=== PATIENT | female | born 1945 | race Caucasian/White ===

== ENCOUNTER 2019-05-09 16:41 | Inpatient (IN) ==
[2019-05-09] MEDS ORDERED: methylPREDNISolone 125 MG/2 ML VIAL IVP ONE (16:48)
[2019-05-09] MEDS ORDERED: Ipratropium/Albuterol Neb 3 ML IH ONE (16:48)
[2019-05-09] MEDS ORDERED: Ipratropium/Albuterol Neb 3 ML ONE (16:52)
[2019-05-09] MEDS ORDERED: 0.9 % Sodium Chloride 1,000 ML IVC STA (16:53)
--- NOTE | 2019-05-09 16:57 | Emergency Department Note ---
Disposition Clinical Impression: Acute exacerbation of chronic obstructive airways disease UTI (urinary tract infection) Qualifiers: Urinary tract infection type: site unspecified Hematuria presence: without hematuria Qualified Code(s): N39.0 - Urinary tract infection, site not specified Disposition: Admitted As Inpatient Condition: Serious Referrals: Sammy Muniz Jr, MD [Primary Care Provider] - Forms: ED Satisfaction Letter Time of Disposition: 19:21 General Adult HPI - General Chief complaint: ED Shortness of Breath/Dyspnea Stated complaint: DALI Time Seen by Provider: 05/09/19 16:48 Source: patient Mode of arrival: EMS Limitations: no limitations Nursing Notes Reviewed: Yes Vital Signs Reviewed: Yes - History of Present Illness HPI Narrative: Patient is a 74-year-old female with a past medical history of COPD who presents via EMS with increasing shortness of breath for the past several days. She denies any fevers or chest pain. Denies any cough or production of sputum. She denies any recent illness. EMS reports that the patient is more confused and repeatedly asks the same questions. Patient is alert and oriented to self and place only. She has not fallen or sustained any head trauma. According to EMS, the patient called them for increasing respiratory distress. Per EMS report, the patient has a very poor living situation. The home is "very hot, with insects everywhere, with unclean surroundings, no running water." Patient has been taking her inhalers, however it has not helped. She also has decreased food and fluid intake for the past several days. - Related Data Home Medications Medication Instructions Recorded Confirmed Albuterol Sulfate [Ventolin Hfa] 18 gm IH Q4H PRN 05/09/19 05/09/19 Allergies Allergy/AdvReac Type Severity Reaction Status Date / Time No Known Allergies Allergy Verified 06/09/18 02:32 All systems ED: reviewed and negative except as stated. Review of Systems: As Per HPI Constitutional: Denies: fever, chills, weakness Eyes: Denies: eye discharge, vision change ENT ED: Denies: ear pain, throat pain, dental pain Cardiovascular: Denies: chest pain, palpitations, dyspnea on exertion Respiratory: Reports: dyspnea, wheezes. Denies: cough Gastrointestinal: Denies: abdominal pain, nausea, vomiting Genitourinary: Denies: urgency, dysuria, frequency Musculoskeletal: Denies: back pain, neck pain, joint swelling Integumentary: Denies: rash, abrasion, lesions Neurological: Denies: headache, weakness, numbness Psychiatric: Denies: anxiety, depression Endocrine: Reports: fatigue. Denies: heat or cold intolerance, polydipsia Hematological/Lymphatic: Denies: easy bleeding, easy bruising, lymphadenopathy Past Medical History - Past Medical History Attestation: Yes The following information was validated with the patient. 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 HEAD: Normocephalic, atraumatic. EYES: PERRL, EOMI, anicteric. ENT: MMM. oropharynx without erythema or drainage. NECK: Supple. No LAD. No stiffness or restricted ROM. No tracheal deviation. HEART: Regular rate and regular rhythm, normal S1/S2, no m/r/g. LUNGS: Poor air exchange bilaterally, diffuse wheezing inspiratory/expiratory in all lung aguirre. ABDO: Soft, nontender, nondistended with active bowel sounds. : No suprapubic tenderness or CVA tenderness. BACK: No obvious stepoffs or deformities. EXT: Without cyanosis, clubbing or edema. SKIN: Warm and dry without any rash. NEURO: Grossly nonfocal. Alert and oriented to self and place only, moving all 4 extremities. CN not formally tested but appear grossly intact. Observed to ambulate with normal gait. PSYCH: Normal affect, no depressed or anxious mood. Course Course Narrative: Patient was seen and examined. Appeared to be in respiratory distress. Was given inhalers and steroids. CBC, CMP, EKG, troponins, ABG, chest x-ray was ordered. The CT head was obtained for altered mental status. Also BNP, lactate. Also appeared dehydrated with positive skin turgor. Given 1 L normal saline bolus. Vital Signs Respiratory Rate 20 05/09/19 17:04 Blood Pressure 156/96 05/09/19 17:04 O2 Sat by Pulse Oximetry 98 05/09/19 17:04 Temperature 98.1 F 05/09/19 17:10 Pulse Rate 85 05/09/19 19:19 Respiratory Rate 18 05/09/19 19:19 Blood Pressure 124/77 05/09/19 19:19 O2 Sat by Pulse Oximetry 98 05/09/19 19:19 Oxygen Delivery Oxygen Delivery Room Air Medical Decision Making - MDM Narrative Medical decision making narrative: Patient a 74-year-old female who is presenting with shortness of breath due to COPD exacerbation. She also has unstable home situation. Patient was initially hypoxic requiring 4 L of nasal cannula. She was also hypertensive with a blood pressure of 150 systolic. She was treated with inhalers and steroids. He did have significant improvement. She is typically on 2-3 L of home oxygen. Labs are significant for UTI. A chest x-ray showed emphysema. Head CT was normal. She was started on Rocephin. Given the fragile nature of her home situation and overall dehydration, malnutrition, cachexia along with the COPD with new oxygen requirement she will be admitted to hospitalist service. After treatment mentation was at baseline, it was no longer respiratory distress. She was also started on azithromycin for COPD exacerbation. Given 1 L normal saline. She was communicated to the hospitalist who accepted for admission. - Medical Records Medical records reviewed: Yes I reviewed the patient's medical records. - Lab Data Lab results reviewed: Yes I reviewed the patient's lab results. Result diagrams: 05/09/19 17:45 05/09/19 17:45 Lab Results 05/09/19 05/09/19 05/09/19 Range/Units 17:03 17:45 17:45 WBC 9.1 (4.3-11.1) K/mcL RBC 4.58 (3.82-4.97) M/mcL Hgb 13.9 (11.5-15.4) g/dL Hct 42.6 (35.3-44.9) % MCV 93.0 (83.0-100.0) fL MCH 30.3 (28.0-33.3) pg MCHC 32.6 (31.6-35.5) g/dL RDW 13.8 (11.5-14.5) % Plt Count 263 (140-400) K/mcL MPV 11.4 (9.4-12.4) fL Immature Gran % 0.2 (0-4) % Seg Neutrophils % 84.3 % Lymphocytes % 8.0 % Monocytes % 7.0 % Eosinophils % 0.4 % Basophils % 0.1 % Neutrophils # 7.6 (1.6-8.9) K/mcL Lymphocytes # 0.7 (0.6-4.6) K/mcL Monocytes # 0.6 (0.0-1.3) K/mcL Eosinophils # 0.0 (0.0-0.6) K/mcL Basophils # 0.0 (0.0-0.2) K/mcL ABG pH 7.41 (7.32-7.45) pH Units ABG pCO2 49 H (35-45) mmHg ABG pO2 99 (85-104) mmHg ABG HCO3 30 H (21-27) mEq/L ABG Total CO2 32 H (20-26) mEq/L ABG O2 Saturation 98 (95-98) % ABG Base Excess 5 H (-2 to 3) mEq/L O2 Delivery Device Cannula Inspired O2 4.0 (1-15=lpm [id number]=%) Sodium 142 (136-145) mEq/L Potassium 4.1 (3.5-5.1) mEq/L Chloride 102 (98-107) mEq/L Carbon Dioxide 30 H (23-29) mEq/L BUN 31 H (8-23) mg/dL Creatinine 0.85 (0.60-1.20) mg/dL Est GFR ( Amer) > 60 (> 60) Est GFR (Non-Af Amer) > 60 (> 60) BUN/Creatinine Ratio 36 H (6-26) Glucose 136 H (70-105) mg/dL Calculated Osmolality 303 H (280-300) Lactic Acid (0.5-2.2) mmol/L Calcium 10.0 (8.6-10.3) mg/dL Troponin I < 0.03 (< 0.04) ng/mL B-Natriuretic Peptide (Less than 100) pg/mL Urine Color (Yellow) Urine Clarity (Clear) Urine pH (5.0-8.0) pH Units Ur Specific [place] (1.010-1.025) Urine Protein (Neg-Trace) mg/dL Urine Glucose (UA) (Normal) mg/dL Urine Ketones (Negative) mg/dL Urine Blood (Negative) Urine Nitrite (Negative) Urine Bilirubin (Negative) Urine Urobilinogen (Normal) mg/dL Ur Leukocyte Esterase (Negative) Urine Microscopic RBC (0-3) per hpf Urine Microscopic WBC (0-3) per hpf Ur Squamous Epith Cells (None-Few) per lpf Urine Bacteria (None-Few) per hpf Hyaline Casts (None-Few) per lpf Urine Mucus (Few) Ur Culture Indicated? (NO) 05/09/19 05/09/19 05/09/19 Range/Units 17:45 17:45 18:34 WBC (4.3-11.1) K/mcL RBC (3.82-4.97) M/mcL Hgb (11.5-15.4) g/dL Hct (35.3-44.9) % MCV (83.0-100.0) fL MCH (28.0-33.3) pg MCHC (31.6-35.5) g/dL RDW (11.5-14.5) % Plt Count (140-400) K/mcL MPV (9.4-12.4) fL Immature Gran % (0-4) % Seg Neutrophils % % Lymphocytes % % Monocytes % % Eosinophils % % Basophils % % Neutrophils # (1.6-8.9) K/mcL Lymphocytes # (0.6-4.6) K/mcL Monocytes # (0.0-1.3) K/mcL Eosinophils # (0.0-0.6) K/mcL Basophils # (0.0-0.2) K/mcL ABG pH (7.32-7.45) pH Units ABG pCO2 (35-45) mmHg ABG pO2 (85-104) mmHg ABG HCO3 (21-27) mEq/L ABG Total CO2 (20-26) mEq/L ABG O2 Saturation (95-98) % ABG Base Excess (-2 to 3) mEq/L O2 Delivery Device Inspired O2 (1-15=lpm [id number]=%) Sodium (136-145) mEq/L Potassium (3.5-5.1) mEq/L Chloride (98-107) mEq/L Carbon Dioxide (23-29) mEq/L BUN (8-23) mg/dL Creatinine (0.60-1.20) mg/dL Est GFR ( Amer) (> 60) Est GFR (Non-Af Amer) (> 60) BUN/Creatinine Ratio (6-26) Glucose (70-105) mg/dL Calculated Osmolality (280-300) Lactic Acid 1.6 (0.5-2.2) mmol/L Calcium (8.6-10.3) mg/dL Troponin I (< 0.04) ng/mL B-Natriuretic Peptide 139 H (Less than 100) pg/mL Urine Color Yellow (Yellow) Urine Clarity Clear (Clear) Urine pH 6.5 (5.0-8.0) pH Units Ur Specific [place] 1.022 (1.010-1.025) Urine Protein 100 H (Neg-Trace) mg/dL Urine Glucose (UA) Normal (Normal) mg/dL Urine Ketones Negative (Negative) mg/dL Urine Blood Large H (Negative) Urine Nitrite Negative (Negative) Urine Bilirubin Negative (Negative) Urine Urobilinogen Normal (Normal) mg/dL Ur Leukocyte Esterase Moderate H (Negative) Urine Microscopic RBC TNTC H (0-3) per hpf Urine Microscopic WBC 50-100 H (0-3) per hpf Ur Squamous Epith Cells Many H (None-Few) per lpf Urine Bacteria None Seen (None-Few) per hpf Hyaline Casts Few (None-Few) per lpf Urine Mucus Few (Few) Ur Culture Indicated? YES A (NO) - Radiology Data Radiology results reviewed: Yes I reviewed the patient's radiology results. - EKG Data EKG #1 EKG attestation: Yes I reviewed and interpreted this EKG. EKG results narrative: EKG was obtained at 1654. Interpretation of EKG shows sinus tachycardia, normal intervals, normal axis, no hypertrophy, no ST elevations or depressions, no T wave. Compared to previous from October 18, 2017.
[2019-05-09 17:09] LABS: ABG Base Excess 5 mEq/L (-2 to 3); ABG HCO3 30 mEq/L (21-27); ABG Oxygen Saturation 98 % (95-98); ABG PCO2 49 mmHg (35-45); ABG PH 7.41 pH Units (7.32-7.45); ABG PO2 99 mmHg (85-104); ABG TCO2 32 mEq/L (20-26)
[2019-05-09 18:04] LABS: Basophils % 0.1 %; Eosinophils % 0.4 %; Hematocrit 42.6 % (35.3-44.9); Hemoglobin 13.9 g/dL (11.5-15.4); Immature Granulocytes % 0.2 % (0-4); Lymphocytes # 0.7 K/mcL (0.6-4.6); Mean Corpuscular HGB Conc 32.6 g/dL (31.6-35.5); Mean Corpuscular Hemoglobin 30.3 pg (28.0-33.3); Mean Platelet Volume 11.4 fL (9.4-12.4); Monocytes # 0.6 K/mcL (0.0-1.3); Neutrophils # 7.6 K/mcL (1.6-8.9); Platelet Count 263 K/mcL (140-400); Red Blood Count 4.58 M/mcL (3.82-4.97); Red Cell Distribution Width 13.8 % (11.5-14.5); Segmented Neutrophils % 84.3 %; White Blood Count 9.1 K/mcL (4.3-11.1)
[2019-05-09 18:24] LABS: BUN/Creatinine Ratio 36 (6-26); Blood Urea Nitrogen 31 mg/dL (8-23); Carbon Dioxide 30 mEq/L (23-29); Chloride 102 mEq/L (98-107); Glucose 136 mg/dL (70-105); Osmolality,Calculated 303 (280-300); Potassium 4.1 mEq/L (3.5-5.1); Sodium 142 mEq/L (136-145); Troponin I < 0.03 ng/mL (< 0.04); eGFR For African Americans > 60 (> 60); eGFR For Non-African Americans > 60 (> 60)
[2019-05-09 18:44] LABS: Bilirubin,Urine Negative (Negative); Blood,Urine Large (Negative); Clarity,Urine Clear (Clear); Color,Urine Yellow (Yellow); Glucose,Urine (UA) Normal (Normal); Ketones,Urine Negative (Negative); Leukocyte Esterase,Urine Moderate (Negative); Nitrite,Urine Negative (Negative); PH,Urine 6.5 pH Units (5.0-8.0); Protein,Urine 100 mg/dL (Neg-Trace); Specific Gravity,Urine 1.022 (1.010-1.025); Urobilinogen,Urine Normal (Normal)
[2019-05-09 18:45] LABS: Bacteria,Urine None Seen per hpf (None-Few); Hyaline Casts,Urine Few per lpf (None-Few); RBC,Urine TNTC per hpf (0-3); Squamous Epithelial Cell,Urine Many per lpf (None-Few); WBC,Urine 50-100 per hpf (0-3)
[2019-05-09 19:01] LABS: Mucus,Urine Few (Few)
[2019-05-09] MEDS ORDERED: cefTRIAXone 1,000 MG in 0.9 % Sodium Chloride Mini Bag 100 ML IVPB ONE (19:15)
[2019-05-09] MEDS ORDERED: Azithromycin 500 MG in 0.9 % Sodium Chloride 250 ML IVPB ONE (19:15)
--- NOTE | 2019-05-09 19:16 | Emergency Department Note ---
Disposition Clinical Impression: Acute exacerbation of chronic obstructive airways disease UTI (urinary tract infection) Qualifiers: Urinary tract infection type: site unspecified Hematuria presence: without hematuria Qualified Code(s): N39.0 - Urinary tract infection, site not specified Disposition: Admitted As Inpatient Condition: Serious Referrals: Sammy Muniz Jr, MD [Primary Care Provider] - Forms: ED Satisfaction Letter Time of Disposition: 19:16 General Adult HPI - General Chief complaint: ED Shortness of Breath/Dyspnea Stated complaint: DALI Time Seen by Provider: 05/09/19 16:48 Source: patient Mode of arrival: EMS Limitations: no limitations Nursing Notes Reviewed: Yes Vital Signs Reviewed: Yes - History of Present Illness Pain Scale: 0 - Related Data Home Medications Medication Instructions Recorded Confirmed Albuterol Sulfate [Ventolin Hfa] 18 gm IH Q4H PRN 05/09/19 05/09/19 Allergies Allergy/AdvReac Type Severity Reaction Status Date / Time No Known Allergies Allergy Verified 06/09/18 02:32 Constitutional: Denies: fever, chills, weakness Eyes: Denies: eye discharge, vision change ENT ED: Denies: ear pain, throat pain, dental pain Cardiovascular: Denies: chest pain, palpitations, dyspnea on exertion Respiratory: Reports: dyspnea, wheezes. Denies: cough Gastrointestinal: Denies: abdominal pain, nausea, vomiting Genitourinary: Denies: urgency, dysuria, frequency Musculoskeletal: Denies: back pain, neck pain, joint swelling Integumentary: Denies: rash, abrasion, lesions Neurological: Denies: headache, weakness, numbness Psychiatric: Denies: anxiety, depression Endocrine: Reports: fatigue. Denies: heat or cold intolerance, polydipsia Hematological/Lymphatic: Denies: easy bleeding, easy bruising, lymphadenopathy Past Medical History - Past Medical History Medical history: Reports: COPD, myocardial infarction Psychiatric history: Reports: depression SHRIMPER history: Reports: no SHRIMPER history - Social History Smoking Status: Current every day smoker Smokeless Tobacco Status: No Alcohol use: Reports: none Drug use: Reports: unknown Physical Exam - General Limitations: no limitations General appearance: alert, in no apparent distress Course Vital Signs Respiratory Rate 20 05/09/19 17:04 Blood Pressure 156/96 05/09/19 17:04 O2 Sat by Pulse Oximetry 98 05/09/19 17:04 Temperature 98.1 F 05/09/19 17:10 Pulse Rate 85 05/09/19 19:19 Respiratory Rate 18 05/09/19 19:19 Blood Pressure 124/77 05/09/19 19:19 O2 Sat by Pulse Oximetry 98 05/09/19 19:19 Oxygen Delivery Oxygen Delivery Room Air Medical Decision Making - Lab Data Result diagrams: 05/09/19 17:45 05/09/19 17:45 Lab Results 05/09/19 05/09/19 05/09/19 Range/Units 17:03 17:45 17:45 WBC 9.1 (4.3-11.1) K/mcL RBC 4.58 (3.82-4.97) M/mcL Hgb 13.9 (11.5-15.4) g/dL Hct 42.6 (35.3-44.9) % MCV 93.0 (83.0-100.0) fL MCH 30.3 (28.0-33.3) pg MCHC 32.6 (31.6-35.5) g/dL RDW 13.8 (11.5-14.5) % Plt Count 263 (140-400) K/mcL MPV 11.4 (9.4-12.4) fL Immature Gran % 0.2 (0-4) % Seg Neutrophils % 84.3 % Lymphocytes % 8.0 % Monocytes % 7.0 % Eosinophils % 0.4 % Basophils % 0.1 % Neutrophils # 7.6 (1.6-8.9) K/mcL Lymphocytes # 0.7 (0.6-4.6) K/mcL Monocytes # 0.6 (0.0-1.3) K/mcL Eosinophils # 0.0 (0.0-0.6) K/mcL Basophils # 0.0 (0.0-0.2) K/mcL ABG pH 7.41 (7.32-7.45) pH Units ABG pCO2 49 H (35-45) mmHg ABG pO2 99 (85-104) mmHg ABG HCO3 30 H (21-27) mEq/L ABG Total CO2 32 H (20-26) mEq/L ABG O2 Saturation 98 (95-98) % ABG Base Excess 5 H (-2 to 3) mEq/L O2 Delivery Device Cannula Inspired O2 4.0 (1-15=lpm [id number]=%) Sodium 142 (136-145) mEq/L Potassium 4.1 (3.5-5.1) mEq/L Chloride 102 (98-107) mEq/L Carbon Dioxide 30 H (23-29) mEq/L BUN 31 H (8-23) mg/dL Creatinine 0.85 (0.60-1.20) mg/dL Est GFR ( Amer) > 60 (> 60) Est GFR (Non-Af Amer) > 60 (> 60) BUN/Creatinine Ratio 36 H (6-26) Glucose 136 H (70-105) mg/dL Calculated Osmolality 303 H (280-300) Lactic Acid (0.5-2.2) mmol/L Calcium 10.0 (8.6-10.3) mg/dL Troponin I < 0.03 (< 0.04) ng/mL B-Natriuretic Peptide (Less than 100) pg/mL Urine Color (Yellow) Urine Clarity (Clear) Urine pH (5.0-8.0) pH Units Ur Specific [place] (1.010-1.025) Urine Protein (Neg-Trace) mg/dL Urine Glucose (UA) (Normal) mg/dL Urine Ketones (Negative) mg/dL Urine Blood (Negative) Urine Nitrite (Negative) Urine Bilirubin (Negative) Urine Urobilinogen (Normal) mg/dL Ur Leukocyte Esterase (Negative) Urine Microscopic RBC (0-3) per hpf Urine Microscopic WBC (0-3) per hpf Ur Squamous Epith Cells (None-Few) per lpf Urine Bacteria (None-Few) per hpf Hyaline Casts (None-Few) per lpf Urine Mucus (Few) Ur Culture Indicated? (NO) 05/09/19 05/09/19 05/09/19 Range/Units 17:45 17:45 18:34 WBC (4.3-11.1) K/mcL RBC (3.82-4.97) M/mcL Hgb (11.5-15.4) g/dL Hct (35.3-44.9) % MCV (83.0-100.0) fL MCH (28.0-33.3) pg MCHC (31.6-35.5) g/dL RDW (11.5-14.5) % Plt Count (140-400) K/mcL MPV (9.4-12.4) fL Immature Gran % (0-4) % Seg Neutrophils % % Lymphocytes % % Monocytes % % Eosinophils % % Basophils % % Neutrophils # (1.6-8.9) K/mcL Lymphocytes # (0.6-4.6) K/mcL Monocytes # (0.0-1.3) K/mcL Eosinophils # (0.0-0.6) K/mcL Basophils # (0.0-0.2) K/mcL ABG pH (7.32-7.45) pH Units ABG pCO2 (35-45) mmHg ABG pO2 (85-104) mmHg ABG HCO3 (21-27) mEq/L ABG Total CO2 (20-26) mEq/L ABG O2 Saturation (95-98) % ABG Base Excess (-2 to 3) mEq/L O2 Delivery Device Inspired O2 (1-15=lpm [id number]=%) Sodium (136-145) mEq/L Potassium (3.5-5.1) mEq/L Chloride (98-107) mEq/L Carbon Dioxide (23-29) mEq/L BUN (8-23) mg/dL Creatinine (0.60-1.20) mg/dL Est GFR ( Amer) (> 60) Est GFR (Non-Af Amer) (> 60) BUN/Creatinine Ratio (6-26) Glucose (70-105) mg/dL Calculated Osmolality (280-300) Lactic Acid 1.6 (0.5-2.2) mmol/L Calcium (8.6-10.3) mg/dL Troponin I (< 0.04) ng/mL B-Natriuretic Peptide 139 H (Less than 100) pg/mL Urine Color Yellow (Yellow) Urine Clarity Clear (Clear) Urine pH 6.5 (5.0-8.0) pH Units Ur Specific [place] 1.022 (1.010-1.025) Urine Protein 100 H (Neg-Trace) mg/dL Urine Glucose (UA) Normal (Normal) mg/dL Urine Ketones Negative (Negative) mg/dL Urine Blood Large H (Negative) Urine Nitrite Negative (Negative) Urine Bilirubin Negative (Negative) Urine Urobilinogen Normal (Normal) mg/dL Ur Leukocyte Esterase Moderate H (Negative) Urine Microscopic RBC TNTC H (0-3) per hpf Urine Microscopic WBC 50-100 H (0-3) per hpf Ur Squamous Epith Cells Many H (None-Few) per lpf Urine Bacteria None Seen (None-Few) per hpf Hyaline Casts Few (None-Few) per lpf Urine Mucus Few (Few) Ur Culture Indicated? YES A (NO) Attestation Statement - Attestation Attestation: I examined this patient and my medical decision-making was reviewed with the Resident Physician. I agree with the documented findings, disposition and treatment plan as described except to the extent set forth below. Patient presents to the ED with shortness of breath. Cough. Altered mental status. Brought in by EMS and knows her well. They are frequent calls to the house. Today they feel she is more confused and repeating herself. More short of breath and normal. On exam she is tachypneic with accessory muscle use. Expratory wheezing. Actively coughing up clear phlegm. Oriented 2. Plan. Nebs and steroids. Cardiac workup. Patient is improved after nebs and steroids. No longer in respiratory distress. Still with wheezing. Still requiring oxygen. X-ray does not show an infiltrate. EKG does not show any ischemic changes. Reviewed with resident. We will admit for COPD exacerbation and UTI. Chest X-Ray 05/09/19 17:05 IMPRESSION: Emphysema, without acute cardiopulmonary process. D/ / Ricky Mcghee MD / Ricky Mcghee MD Interpreting Provider: Ricky Mcghee MD Head CT 05/09/19 18:10 IMPRESSION: No acute intracranial abnormality. D/ / Rory Carrillo MD / Rory Carrillo MD Interpreting Provider: Rory Carrillo MD
[2019-05-09] MEDS ORDERED: Naloxone 0.4 MG/ML INJ IVP PRN (22:41)
--- NOTE | 2019-05-09 23:47 | Internal Med History&Physical ---
Date of Encounter: 05/09/19 Time of Encounter: 23:44 Internal Medicine - H&P: HPI Chief complaint: SOB History of present illness: Ms. Shah is a 74 year old female with a past medical history of COPD on 3 L home oxygen, history of right upper lobectomy and CO who presented to the ED with complaints of increasing shortness of breath intermittently for the past week. Patient has been taking her inhalers, however it has not helped. Per EMS report patient called them for increasing respiratory distress. On arrival patient appeared to be confused and repeatedly asked the same questions. Home was noted to be a very poor living situation, with poor ventilation uncle anliness surroundings, no running water and insects findings. On my assessment patient was alert oriented 2. She does admit to difficulty recalling the year stating that it is no longer important to her. She did appear to be conversationally dyspneic. She reports that her running Stein obtained from a well which will sometimes dry up depending on the weather. Currently lives at home with her . No reports of subjective fever or chills. No reports of worsening cough, chest pain, nausea, vomiting or diarrhea. On arrival patient was afebrile, mildly hypertensive and initially hypoxic requiring 4 L of nasal cannula. Patient was given inhalers and steroids with reported significant improvement. She is typically on 2-3 L of home oxygen. Labs are significant for UTI however patient denies any symptoms of dysuria, frequency or suprapubic tenderness. Chest x-ray showed emphysematous changes but no acute changes. Head CT was normal. Patient given one-time dose of Rocephin for possible UTI and urine cultures were obtained. She was also started on azithromycin for COPD exacerbation. Given 1 L normal saline. Past Med Surg Social Fam HX - Past Medical History Medical history: COPD, myocardial infarction Additional medical history: Stents Psychiatric history: depression - Past Surgical History Additional surgical history: Partial Right Lobectomy - Social History Smoking Status: Former smoker Smokeless Tobacco Status: No Alcohol use: none Drug use: unknown Internal Medicine - H&P: Meds Albuterol Sulfate [Ventolin Hfa] 2 puff IH Q4H PRN 05/09/19 [History] Allergy/AdvReac Type Severity Reaction Status Date / Time No Known Allergies Allergy Verified 06/09/18 02:32 All Systems PM: A 10-system review of systems was performed and is negative for pertinent findings except as documented above in the HPI. - Constitutional Constitutional: no chills, no fever(s), no night sweats - EENT Eyes: no change in vision, no discharge, no pain, no photophobia Ears: no ear discharge, no ear pain, no tinnitus Nose, mouth and throat: no dysphagia, no nasal discharge, no neck pain, no sore throat - Cardiovascular Cardiovascular ROS IM: no chest pain, no diaphoresis, no dyspnea, no lightheadedness, no palpitations, no syncope - Respiratory Respiratory: no cough, no dyspnea, no wheezing, no excessive phlegm production - Gastrointestinal Gastrointestinal: no abdominal pain, no diarrhea, no hematemesis, no hematochezia, no melena, no nausea, no vomiting - Genitourinary Genitourinary: no change in urinary stream, no dysuria, no flank pain, no hematuria - Musculoskeletal Musculoskeletal ROS IM: no numbness, no tingling - Integumentary Integumentary IM: no rash, no unusual bruising - Neurological Neurological ROS: no confusion, no convulsions, no focal weakness, no numbness, no tingling, no tremor(s) - Hematologic/Lymphatic Hematologic/Lymphatic: no easy bruising - Constitutional Vitals: Temp Pulse Resp BP Pulse Ox 97.6 F 85 17 107/75 97 05/09/19 22:35 05/09/19 22:35 05/09/19 22:35 05/09/19 22:35 05/09/19 22:35 Exam: General: Alert and oriented Skin:Normal color, no rash, no lesions. HEENT:EOM, pupils equal, round and reactive. Cardiovascular:Normal S1 & S2, no rubs, murmurs or gallops. No JVD. Pulse regular. Lungs: Expiratory wheezing bilaterally Abdomen:Soft, non-tender, no rigidity. Extremities:No deformity, no edema or tenderness, no joint swelling or clubbing. Neurological:Normal cognition and motor skills. Pulses:Carotid and radial pulses normal +2. Rest of the physical exam is non contributory Internal Med - H&P Results - Labs CBC & Chem 7: 05/10/19 03:39 05/10/19 03:39 Labs: Short CBC 05/09/19 Range/Units 17:45 WBC 9.1 (4.3-11.1) K/mcL Hgb 13.9 (11.5-15.4) g/dL Hct 42.6 (35.3-44.9) % Plt Count 263 (140-400) K/mcL Neutrophils # 7.6 (1.6-8.9) K/mcL BMP 05/09/19 17:45 Sodium 142 Potassium 4.1 Chloride 102 Carbon Dioxide 30 H BUN 31 H Creatinine 0.85 Glucose 136 H Calcium 10.0 Cardiac Enzymes 05/09/19 Range/Units 17:45 Troponin I < 0.03 (< 0.04) ng/mL Urine 05/09/19 Range/Units 18:34 Urine Color Yellow (Yellow) Urine Clarity Clear (Clear) Urine pH 6.5 (5.0-8.0) pH Units Ur Specific [place] 1.022 (1.010-1.025) Urine Protein 100 H (Neg-Trace) mg/dL Urine Glucose (UA) Normal (Normal) mg/dL - ABG Interpretation ABG results: 05/09/19 17:03 ABG pH 7.41 ABG pCO2 49 H ABG pO2 99 ABG HCO3 30 H ABG Total CO2 32 H ABG O2 Saturation 98 ABG Base Excess 5 H - Impressions ITS Impressions Chest X-Ray 05/09/19 17:05 IMPRESSION: Emphysema, without acute cardiopulmonary process. D/ / Ricky Mcghee MD / Ricky Mcghee MD Interpreting Provider: Ricky Mcghee MD Head CT 05/09/19 18:10 IMPRESSION: No acute intracranial abnormality. D/ / Rory Carrillo MD / Rory Carrillo MD Interpreting Provider: Rory Carrillo MD - Assessment and Plan (1) Acute respiratory failure with hypoxia and hypercapnia Current Visit: Yes Status: Acute Assessment and plan: History of chronic hypoxia in the setting of right upper lobectomy and history of COPD on 2-3 L oxygen at home. Found to be conversationally dyspneic requiring 4 L nasal cannula in the setting of possible COPD exacerbation. ABG showing mild hypercapnia which appears to be compensated. -Continue oxygen support -Continue treatment for underlying COPD. (2) Acute exacerbation of chronic obstructive airways disease Current Visit: Yes Status: Acute Assessment and plan: History of COPD on 2-3 L nasal cannula at home presenting with increased dyspnea, wheezing and oxygen requirements concerning for exacerbation of COPD. Chest x-ray showing emphysematous changes with no acute cardiopulmonary process. -Continue supportive oxygen -Continue scheduled duonebs -Continue steroids; monitor blood sugars -Continue azithromycin -BiPAP as needed (3) UTI (urinary tract infection) Current Visit: Yes Status: Acute Assessment and plan: UA showing moderate leukocyte esterase concerning for possible UTI. Patient however denies any symptoms of dysuria, frequency or suprapubic pain. She one- time dose of ceftriaxone in the ED. Urine cultures were obtained -Suspect contaminated sample given elevated squamous epithelial cells -Given lack of clinical symptoms will hold off any further antibiotics for now and follow-up urine cultures Qualifiers: Urinary tract infection type: site unspecified Hematuria presence: without hematuria Qualified Code(s): N39.0 - Urinary tract infection, site not specified (4) DVT prophylaxis Current Visit: Yes Status: Acute Assessment and plan: Subcutaneous heparin (5) Housing unsatisfactory Current Visit: Yes Status: Acute Assessment and plan: Per EMS report patient found in poor living conditions with no running water, lack of adequate A/C ventilation and findings of insects. -Consult administrator social welfare - Time Spent With Patient Total time spent is greater than 50% in coordination of care (as documented) at patient's floor/unit and/or counseling patient:
[2019-05-10] MEDS: MethylPREDNISolone 40 MG/ML VIAL IVP SCH ×4 (00:24→17:55)
[2019-05-10] MEDS: Ipratropium/Albuterol Neb 3 ML IH SCH ×6 (00:27→23:31)
[2019-05-10 04:02] LABS: Hematocrit 35.6 % (35.3-44.9); Mean Corpuscular HGB Conc 33.1 g/dL (31.6-35.5); Mean Corpuscular Hemoglobin 31.4 pg (28.0-33.3); Mean Corpuscular Volume 94.7 fL (83.0-100.0); Mean Platelet Volume 11.8 fL (9.4-12.4); Platelet Count 204 K/mcL (140-400); Red Blood Count 3.76 M/mcL (3.82-4.97); Red Cell Distribution Width 13.8 % (11.5-14.5); White Blood Count 5.4 K/mcL (4.3-11.1)
[2019-05-10 04:03] LABS: Hemoglobin 11.8 g/dL (11.5-15.4)
[2019-05-10 04:22] LABS: Alanine Aminotransferase 17 Units/L (7-52); Albumin 3.9 g/dL (3.5-5.7); Albumin/Globulin Ratio 1.4 (1.1-2.2); Alkaline Phosphatase 85 Units/L (34-104); Aspartate Amino Transferase 15 Units/L (13-39); BUN/Creatinine Ratio 48 (6-26); Bilirubin,Total 0.7 mg/dL (0.3-1.0); Blood Urea Nitrogen 30 mg/dL (8-23); Carbon Dioxide 24 mEq/L (23-29); Chloride 108 mEq/L (98-107); Globulin 2.7 g/dL (2.4-3.5); Glucose 169 mg/dL (70-105); Osmolality,Calculated 306 (280-300); Potassium 3.8 mEq/L (3.5-5.1); Sodium 143 mEq/L (136-145); Total Protein 6.6 g/dL (6.4-8.9); eGFR For African Americans > 60 (> 60); eGFR For Non-African Americans > 60 (> 60)
--- NOTE | 2019-05-10 07:27 | Internal Med Progress Note ---
Hospitalist Progress Note - Encounter Date of Encounter: 05/10/19 Time of Encounter: 08:00 - Subjective Interval History: No acute events overnight - Exam Vitals: Temp Pulse Resp BP Pulse Ox 97.9 F 79 20 126/69 96 05/10/19 04:05/10/19 04:05/10/19 07:20 05/10/19 04:05/10/19 07:20 Exam: General: Alert and oriented Skin:Normal color, no rash, no lesions. HEENT:EOM, pupils equal, round and reactive. Cardiovascular:Normal S1 & S2, no rubs, murmurs or gallops. No JVD. Pulse regular. Lungs: Expiratory wheezing bilaterally Abdomen:Soft, non-tender, no rigidity. Extremities:No deformity, no edema or tenderness, no joint swelling or clubbing. Neurological:Normal cognition and motor skills. Pulses:Carotid and radial pulses normal +2. Rest of the physical exam is non contributory - Assessment and Plan (1) Acute respiratory failure with hypoxia and hypercapnia Current Visit: Yes Status: Acute Assessment and Plan: History of chronic hypoxia in the setting of right upper lobectomy and history of COPD on 2-3 L oxygen at home. Pt was conversationally dyspneic requiring 4 L nasal cannula in the setting of possible COPD exacerbation wtih acute on chronic hypoxic hypercapneic resp failure Continue nebs, steroids and antibiotics. BIPAP if indicated (2) Acute exacerbation of chronic obstructive airways disease Current Visit: Yes Status: Acute Assessment and Plan: History of COPD on 2-3 L nasal cannula at home presenting with increased dyspnea, wheezing and oxygen requirements concerning for exacerbation of COPD. Continue nebs, steroids and antibiotics Code(s): J44.1 - Chronic obstructive pulmonary disease with (acute) exacerbation (3) Housing unsatisfactory Current Visit: Yes Status: Acute Assessment and Plan: Per EMS report patient found in poor living conditions with no running water, lack of adequate A/C ventilation and findings of insects. -Consult social insurance adviser (4) DVT prophylaxis Current Visit: Yes Status: Acute Assessment and Plan: Subcutaneous heparin - Time Spent with Patient Total time spent is greater than 50% in coordination of care (as documented) at patient's floor/unit and/or counseling patient: Internal Medicine: Result - Labs CBC & Chem 7: 05/10/19 03:39 05/10/19 03:39 Labs: Short CBC 05/09/19 05/10/19 Range/Units 17:45 03:39 WBC 9.1 5.4 (4.3-11.1) K/mcL Hgb 13.9 11.8 D (11.5-15.4) g/dL Hct 42.6 35.6 (35.3-44.9) % Plt Count 263 204 (140-400) K/mcL Neutrophils # 7.6 (1.6-8.9) K/mcL BMP 05/09/19 05/10/19 17:45 03:39 Sodium 142 143 Potassium 4.1 3.8 Chloride 102 108 H Carbon Dioxide 30 H 24 BUN 31 H 30 H Creatinine 0.85 0.63 Glucose 136 H 169 H Calcium 10.0 9.0 Cardiac Enzymes 05/09/19 Range/Units 17:45 Troponin I < 0.03 (< 0.04) ng/mL Liver Function 05/10/19 Range/Units 03:39 Total Bilirubin 0.7 (0.3-1.0) mg/dL AST 15 (13-39) Units/L ALT 17 (7-52) Units/L Alkaline Phosphatase 85 (34-104) Units/L Albumin 3.9 (3.5-5.7) g/dL Urine 05/09/19 Range/Units 18:34 Urine Color Yellow (Yellow) Urine Clarity Clear (Clear) Urine pH 6.5 (5.0-8.0) pH Units Ur Specific [place] 1.022 (1.010-1.025) Urine Protein 100 H (Neg-Trace) mg/dL Urine Glucose (UA) Normal (Normal) mg/dL - ABG Interpretation ABG results: ABG ABG pH 7.41 pH Units (7.32-7.45) 05/09/19 17:03 ABG pCO2 49 mmHg (35-45) H 05/09/19 17:03 ABG pO2 99 mmHg (85-104) 05/09/19 17:03 ABG O2 Saturation 98 % (95-98) 05/09/19 17:03 - Impressions Impressions Chest X-Ray 05/09/19 17:05 IMPRESSION: Emphysema, without acute cardiopulmonary process. D/ / Ricky Mcghee MD / Ricky Mcghee MD Interpreting Provider: Ricky Mcghee MD Head CT 05/09/19 18:10 IMPRESSION: No acute intracranial abnormality. D/ / Rory Carrillo MD / Rory Carrillo MD Interpreting Provider: Rory Carrillo MD Consult Discharge Plan - Plan Referrals: Sammy Muniz Jr, MD [Primary Care Provider] -
[2019-05-10] MEDS ORDERED: Azithromycin 500 MG in 0.9 % Sodium Chloride 250 ML IVPB SCH (09:00)
[2019-05-10] MEDS ORDERED: cefTRIAXone 1,000 MG in Water for inj. (sterile) 10 ML IVP SCH (09:00)
[2019-05-10] MEDS: *HR* Heparin 5,000 UNIT/ML VIAL SQ SCH ×3 (10:20→21:11)
[2019-05-10] MEDS: Budesonide/Formoterol 160/4.5 1 PUFF INH IH SCH ×2 (10:33→20:01)
--- NOTE | 2019-05-10 12:41 | Electrocardiograph Report ---
[address] [address] Test Date: 2019-05-09 Pat Name: Lesa Shah Department: EXAM5 Room: 2A11 Gender: Alarm Adjuster: : 1945 Requested By: Sidney Escobar Order Number: [id number] Reading MD: Juancarlos Naqvi Measurements Intervals [place] Rate: 102 P: 99 MA: 125 QRS: 82 QRSD: 97 T: -17 QT: 369 QTc: 481 Interpretive Statements Sinus tachycardia Right atrial enlargement Borderline right axis deviation Probable left ventricular hypertrophy Baseline artifact Electronically Signed On 05-10-2019 12:39:49 EDT by Juancarlos Naqvi
[2019-05-10] MEDS: *HR* LORazepam 0.5 MG TABLET PO PRN ×2 (16:28→22:07)
[2019-05-11] MEDS: MethylPREDNISolone 40 MG/ML VIAL IVP SCH ×3 (00:05→16:29)
[2019-05-11 02:30] LABS: Hematocrit 33.8 % (35.3-44.9); Hemoglobin 11.1 g/dL (11.5-15.4); Immature Granulocytes % 0.2 % (0-4); Lymphocytes # 0.5 K/mcL (0.6-4.6); Lymphocytes % 4.8 %; Mean Corpuscular HGB Conc 32.8 g/dL (31.6-35.5); Mean Corpuscular Hemoglobin 30.9 pg (28.0-33.3); Mean Corpuscular Volume 94.2 fL (83.0-100.0); Mean Platelet Volume 11.8 fL (9.4-12.4); Monocytes # 0.3 K/mcL (0.0-1.3); Monocytes % 3.2 %; Neutrophils # 8.5 K/mcL (1.6-8.9); Platelet Count 204 K/mcL (140-400); Red Blood Count 3.59 M/mcL (3.82-4.97); Red Cell Distribution Width 13.9 % (11.5-14.5); Segmented Neutrophils % 91.8 %
[2019-05-11 02:37] LABS: White Blood Count 9.3 K/mcL (4.3-11.1)
[2019-05-11 02:51] LABS: BUN/Creatinine Ratio 45 (6-26); Blood Urea Nitrogen 36 mg/dL (8-23); Calcium 9.2 mg/dL (8.6-10.3); Carbon Dioxide 27 mEq/L (23-29); Chloride 108 mEq/L (98-107); Glucose 145 mg/dL (70-105); Osmolality,Calculated 301 (280-300); Phosphorous 3.3 mg/dL (2.7-4.5); Potassium 3.6 mEq/L (3.5-5.1); Sodium 140 mEq/L (136-145); eGFR For African Americans > 60 (> 60); eGFR For Non-African Americans > 60 (> 60)
[2019-05-11] MEDS: Ipratropium/Albuterol Neb 3 ML IH SCH ×6 (03:19→23:02)
[2019-05-11] MEDS: *HR* Heparin 5,000 UNIT/ML VIAL SQ SCH ×3 (05:44→22:13)
[2019-05-11] MEDS: Budesonide/Formoterol 160/4.5 1 PUFF INH IH SCH ×2 (07:14→19:47)
--- NOTE | 2019-05-11 07:28 | Internal Med Progress Note ---
Hospitalist Progress Note - Encounter Date of Encounter: 05/11/19 Time of Encounter: 07:00 - Subjective Interval History: No acute events overnight - Exam Vitals: Temp Pulse Resp BP Pulse Ox 98.0 F 72 18 133/73 96 05/11/19 07:21 05/11/19 07:21 05/11/19 07:21 05/11/19 07:21 05/11/19 07:21 Exam: General: Alert and oriented Skin:Normal color, no rash, no lesions. HEENT:EOM, pupils equal, round and reactive. Cardiovascular:Normal S1 & S2, no rubs, murmurs or gallops. No JVD. Pulse regular. Lungs: Wheezing improved Abdomen:Soft, non-tender, no rigidity. Extremities:No deformity, no edema or tenderness, no joint swelling or clubbing. Neurological:Normal cognition and motor skills. Pulses:Carotid and radial pulses normal +2. Rest of the physical exam is non contributory - Assessment and Plan (1) Acute respiratory failure with hypoxia and hypercapnia Current Visit: Yes Status: Acute Assessment and Plan: History of chronic hypoxia in the setting of right upper lobectomy and history of COPD on 2-3 L oxygen at home. Pt was conversationally dyspneic requiring 4 L nasal cannula in the setting of possible COPD exacerbation wtih acute on chronic hypoxic hypercapneic resp failure Continue nebs, steroids and antibiotics. BIPAP if indicated. Improving (2) Acute exacerbation of chronic obstructive airways disease Current Visit: Yes Status: Acute Assessment and Plan: History of COPD on 2-3 L nasal cannula at home presenting with increased dyspnea, wheezing and oxygen requirements concerning for exacerbation of COPD. Continue nebs, steroids and antibiotics (3) Housing unsatisfactory Current Visit: Yes Status: Acute Assessment and Plan: Per EMS report patient found in poor living conditions with no running water, lack of adequate A/C ventilation and findings of insects. -Consult social worker school (4) Severe protein-calorie malnutrition Current Visit: Yes Status: Acute Assessment and Plan: Dietary protein supplementation. Dietary on board (5) DVT prophylaxis Current Visit: Yes Status: Acute Assessment and Plan: Subcutaneous heparin - Time Spent with Patient Total time spent is greater than 50% in coordination of care (as documented) at patient's floor/unit and/or counseling patient: Internal Medicine: Result - Labs CBC & Chem 7: 05/11/19 02:03 05/11/19 02:03 Labs: Short CBC 05/11/19 Range/Units 02:03 WBC 9.3 D (4.3-11.1) K/mcL Hgb 11.1 L (11.5-15.4) g/dL Hct 33.8 L (35.3-44.9) % Plt Count 204 (140-400) K/mcL Neutrophils # 8.5 (1.6-8.9) K/mcL BMP 05/11/19 02:03 Sodium 140 Potassium 3.6 Chloride 108 H Carbon Dioxide 27 BUN 36 H Creatinine 0.80 Glucose 145 H Calcium 9.2 - ABG Interpretation ABG results: ABG ABG pH 7.41 pH Units (7.32-7.45) 05/09/19 17:03 ABG pCO2 49 mmHg (35-45) H 05/09/19 17:03 ABG pO2 99 mmHg (85-104) 05/09/19 17:03 ABG O2 Saturation 98 % (95-98) 05/09/19 17:03 - Impressions Impressions Head CT 05/10/19 16:43 IMPRESSION: No acute intracranial abnormality. Mild parenchymal volume loss. Moderate ventriculomegaly, disproportionate to the degree of volume loss, likely with mild communicating hydrocephalus, progressed. Minimal chronic microvascular disease. D/ / Esteban Addison MD / Esteban Addison MD Interpreting Provider: Esteban Addison MD Consult Discharge Plan - Plan Referrals: Sammy Muniz Jr, MD [Primary Care Provider] -
[2019-05-11] MEDS: Azithromycin 250 MG TABLET PO SCH (10:21)
[2019-05-12] MEDS: Ipratropium/Albuterol Neb 3 ML IH SCH ×5 (03:24→19:54)
[2019-05-12] MEDS: *HR* Heparin 5,000 UNIT/ML VIAL SQ SCH ×3 (05:33→22:03)
[2019-05-12] MEDS: MethylPREDNISolone 40 MG/ML VIAL IVP SCH ×2 (05:34→17:09)
[2019-05-12 06:07] LABS: Hematocrit 36.2 % (35.3-44.9); Immature Granulocytes % 0.4 % (0-4); Lymphocytes # 0.5 K/mcL (0.6-4.6); Lymphocytes % 4.4 %; Mean Corpuscular HGB Conc 33.1 g/dL (31.6-35.5); Mean Corpuscular Hemoglobin 30.5 pg (28.0-33.3); Mean Corpuscular Volume 91.9 fL (83.0-100.0); Mean Platelet Volume 12.1 fL (9.4-12.4); Monocytes % 9.2 %; Neutrophils # 9.6 K/mcL (1.6-8.9); Platelet Count 211 K/mcL (140-400); Red Blood Count 3.94 M/mcL (3.82-4.97); Red Cell Distribution Width 13.9 % (11.5-14.5); White Blood Count 11.1 K/mcL (4.3-11.1)
[2019-05-12 07:02] LABS: Calcium 9.2 mg/dL (8.6-10.3); Magnesium 2.1 mg/dL (1.6-2.6); Phosphorous 3.2 mg/dL (2.7-4.5); Potassium 3.6 mEq/L (3.5-5.1)
[2019-05-12] MEDS: Budesonide/Formoterol 160/4.5 1 PUFF INH IH SCH ×2 (07:55→19:54)
[2019-05-12] MEDS: Azithromycin 250 MG TABLET PO SCH (08:02)
--- NOTE | 2019-05-12 08:36 | Internal Med Progress Note ---
Hospitalist Progress Note - Encounter Date of Encounter: 05/12/19 Time of Encounter: 08:00 - Subjective Interval History: No acute events overnight - Exam Vitals: Temp Pulse Resp BP Pulse Ox 97.9 F 75 16 137/67 98 05/12/19 06:57 05/12/19 06:57 05/12/19 07:55 05/12/19 06:57 05/12/19 07:55 Exam: General: Alert and oriented Skin:Normal color, no rash, no lesions. HEENT:EOM, pupils equal, round and reactive. Cardiovascular:Normal S1 & S2, no rubs, murmurs or gallops. No JVD. Pulse regular. Lungs: Wheezing improved Abdomen:Soft, non-tender, no rigidity. Extremities:No deformity, no edema or tenderness, no joint swelling or clubbing. Neurological:Normal cognition and motor skills. Pulses:Carotid and radial pulses normal +2. Rest of the physical exam is non contributory - Assessment and Plan (1) Acute respiratory failure with hypoxia and hypercapnia Current Visit: Yes Status: Acute Assessment and Plan: History of chronic hypoxia in the setting of right upper lobectomy and history of COPD on 2-3 L oxygen at home. Pt was conversationally dyspneic requiring 4 L nasal cannula in the setting of possible COPD exacerbation wtih acute on chronic hypoxic hypercapneic resp failure Continue nebs, steroids and antibiotics. BIPAP if indicated. Improving. Pt still feels short of breath this am. Will continue current treatment. Possible d/c in am (2) Acute exacerbation of chronic obstructive airways disease Current Visit: Yes Status: Acute Assessment and Plan: History of COPD on 2-3 L nasal cannula at home presenting with increased dyspnea, wheezing and oxygen requirements concerning for exacerbation of COPD. Continue nebs, steroids and antibiotics (3) Housing unsatisfactory Current Visit: Yes Status: Acute Assessment and Plan: Per EMS report patient found in poor living conditions with no running water, lack of adequate A/C ventilation and findings of insects. -Consult social media community manager (4) Severe protein-calorie malnutrition Current Visit: Yes Status: Acute Assessment and Plan: Dietary protein supplementation. Dietary on board (5) DVT prophylaxis Current Visit: Yes Status: Acute Assessment and Plan: Subcutaneous heparin - Time Spent with Patient Total time spent is greater than 50% in coordination of care (as documented) at patient's floor/unit and/or counseling patient: Internal Medicine: Result - Labs CBC & Chem 7: 05/12/19 05:42 05/12/19 05:42 Labs: Short CBC 05/12/19 Range/Units 05:42 WBC 11.1 (4.3-11.1) K/mcL Hgb 12.0 (11.5-15.4) g/dL Hct 36.2 (35.3-44.9) % Plt Count 211 (140-400) K/mcL Neutrophils # 9.6 H (1.6-8.9) K/mcL BMP 05/12/19 05:42 Sodium 139 Potassium 3.6 Chloride 103 Carbon Dioxide 27 BUN 41 H Creatinine 1.16 Glucose 110 H Calcium 9.2 - ABG Interpretation ABG results: ABG ABG pH 7.41 pH Units (7.32-7.45) 05/09/19 17:03 ABG pCO2 49 mmHg (35-45) H 05/09/19 17:03 ABG pO2 99 mmHg (85-104) 05/09/19 17:03 ABG O2 Saturation 98 % (95-98) 05/09/19 17:03 Consult Discharge Plan - Plan Referrals: Sammy Muniz Jr, MD [Primary Care Provider] -
[2019-05-12] MEDS: *HR* LORazepam 0.5 MG TABLET PO PRN ×2 (11:36→22:29)
[2019-05-12] MEDS ORDERED: Acetaminophen 325 MG TABLET PO PRN (12:42)
[2019-05-12] MEDS ORDERED: traMADol 50 MG TABLET PO PRN (12:52)
[2019-05-13 03:46] LABS: Basophils % 0.1 %; Hematocrit 37.3 % (35.3-44.9); Hemoglobin 12.4 g/dL (11.5-15.4); Immature Granulocytes % 0.2 % (0-4); Lymphocytes # 0.4 K/mcL (0.6-4.6); Mean Corpuscular HGB Conc 33.2 g/dL (31.6-35.5); Mean Corpuscular Hemoglobin 30.5 pg (28.0-33.3); Mean Corpuscular Volume 91.9 fL (83.0-100.0); Mean Platelet Volume 12.3 fL (9.4-12.4); Monocytes # 0.7 K/mcL (0.0-1.3); Monocytes % 7.5 %; Neutrophils # 8.5 K/mcL (1.6-8.9); Platelet Count 204 K/mcL (140-400); Red Blood Count 4.06 M/mcL (3.82-4.97); Red Cell Distribution Width 13.9 % (11.5-14.5); Segmented Neutrophils % 88.2 %; White Blood Count 9.7 K/mcL (4.3-11.1)
[2019-05-13 04:06] LABS: BUN/Creatinine Ratio 46 (6-26); Blood Urea Nitrogen 42 mg/dL (8-23); Calcium 9.3 mg/dL (8.6-10.3); Carbon Dioxide 29 mEq/L (23-29); Chloride 100 mEq/L (98-107); Glucose 121 mg/dL (70-105); Magnesium 2.2 mg/dL (1.6-2.6); Osmolality,Calculated 296 (280-300); Phosphorous 3.7 mg/dL (2.7-4.5); Potassium 3.8 mEq/L (3.5-5.1); Sodium 137 mEq/L (136-145); eGFR For African Americans > 60 (> 60); eGFR For Non-African Americans > 60 (> 60)
[2019-05-13] MEDS: *HR* Heparin 5,000 UNIT/ML VIAL SQ SCH (06:13)
[2019-05-13] MEDS: MethylPREDNISolone 40 MG/ML VIAL IVP SCH (06:18)
[2019-05-13 06:56] VITALS: BP 135/74
--- NOTE | 2019-05-13 07:28 | Discharge Summary ---
Date of Encounter: 05/13/19 Time of Encounter: 07:00 - Discharge Diagnosis (1) Acute respiratory failure with hypoxia and hypercapnia Priority: Primary Status: Acute Assessment and Plan: 74 year old female with a past medical history of COPD on 3 L home oxygen, history of right upper lobectomy and OR who presented to the ED with complaints of increasing shortness of breath intermittently for the past week. Patient has been taking her inhalers, however it has not helped. Per EMS report patient called them for increasing respiratory distress. On arrival patient appeared to be confused and repeatedly asked the same questions. Home was noted to be a very poor living situation, with poor ventilation uncleanliness surroundings, no running water and insects findings. On my assessment patient was alert oriented 2. She does admit to difficulty recalling the year stating that it is no longer important to her. She did appear to be conversationally dyspneic. She reports that her running Stein obtained from a well which will sometimes dry up depending on the weather. She was assessed with acute on chronic hypoxic respiratory failure in the setting of right upper lobectomy and history of COPD on 2-3 L oxygen at home. She was conversationally dyspneic requiring 4 L nasal cannula in the setting of possible COPD exacerbation wtih acute on chronic hypoxic hypercapneic resp failure. She improved on nebs, steroids and antibiotics and got relief with ativan prn as well. Some of her symptoms may be related to extreme anxiety. She was discharged on a tapering course of antibiotics, steroids and ativan. research worker encyclopedia arranged for daily home nurse visits for the next one week. She was discharged in a stable condition. 35 minutes was spent discharging this patient (2) Acute exacerbation of chronic obstructive airways disease Priority: Primary Status: Acute (3) Housing unsatisfactory Priority: Primary Status: Acute (4) Severe protein-calorie malnutrition Priority: Primary Status: Acute (5) DVT prophylaxis Priority: Primary Status: Acute Hospital course: Ms. Shah is a 74 year old female - Time Spent with Patient Total time spent providing and/or coordinating discharge services: - Discharge Medications Prescriptions: New LORazepam [Ativan] 0.5 mg PO Q4HR PRN 5 Days #20 tablet PRN Reason: Anxiety Azithromycin [Zithromax] 500 mg PO DAILY #10 tablet Budesonide/Formoterol 160/4.5 [Symbicort 160/4.5] 2 puff IH BIDR #60 inh predniSONE [PredniSONE] 40 mg PO DAILY #14 tablet Continued Albuterol Sulfate [Ventolin Hfa] 2 puff IH Q4H PRN PRN Reason: Shortness Of Breath Home Medications: Albuterol Sulfate [Ventolin Hfa] 2 puff IH Q4H PRN 05/09/19 [History] Azithromycin [Zithromax] 500 mg PO DAILY #10 tablet 05/13/19 [Rx] Budesonide/Formoterol 160/4.5 [Symbicort 160/4.5] 2 puff IH BIDR #60 inh 05/13/19 [Rx] LORazepam [Ativan] 0.5 mg PO Q4HR PRN 5 Days #20 tablet 05/13/19 [Rx] predniSONE [PredniSONE] 40 mg PO DAILY #14 tablet 05/13/19 [Rx] Allergies/Adverse Reactions: Allergy/AdvReac Type Severity Reaction Status Date / Time No Known Allergies Allergy Verified 06/09/18 02:32 Date of admission: 05/10/19 13:41 Primary care physician: Sammy Muniz Jr, MD Consults: 05/09/19 22:44 Consult to Nurse Navigator [CONS] Routine Comment: 05/10/19 06:47 Consult to Demand Planning Analyst [CONS] Routine Reason for SW Consult: Concern for poor living conditions 05/10/19 07:23 Consult to Physical Therapy [CONS] Routine Comment: Evaluate, develop and implement POC Reason for Consult: weakness Does patient have active BEDREST order?: No Is patient medically & hemodynamically stable?: Yes Patient assessed for mobility or mobilized this visit?: No 05/10/19 07:24 Consult to Occupational Therapy [CONS] Routine Comment: Evaluate, develop and implement POC Reason for Consult: weakness Does patient have active BEDREST order?: No Is patient medically & hemodynamically stable?: Yes Patient assessed for mobility or mobilized this visit?: No 05/10/19 12:17 consult to learning center coordinator [Consult to Nutrition] [CONS] Routine Comment: Consulting Provider: NUTRITION Reason for Dietary Consult: MST Score - Constitutional Vitals: Temp Pulse Resp BP Pulse Ox 97.8 F 81 15 135/74 99 05/13/19 06:50 05/13/19 06:50 05/13/19 06:50 05/13/19 06:50 05/13/19 06:50 Exam: General: Alert and oriented Skin:Normal color, no rash, no lesions. HEENT:EOM, pupils equal, round and reactive. Cardiovascular:Normal S1 & S2, no rubs, murmurs or gallops. No JVD. Pulse regular. Lungs: Wheezing improved Abdomen:Soft, non-tender, no rigidity. Extremities:No deformity, no edema or tenderness, no joint swelling or clubbing. Neurological:Normal cognition and motor skills. Pulses:Carotid and radial pulses normal +2. Rest of the physical exam is non contributory - Patient Status Disposition: Home, Self-Care Condition: Good - Discharge Instructions Instructions: Azithromycin (By mouth) Follow Up With: Sammy Muniz Jr, MD [Primary Care Provider] -
--- NOTE | 2019-05-13 07:31 | Physician Discharge Referral ---
Home Health/Hosp Referral Info Transfer to: Home Health - Diagnosis (1) Acute respiratory failure with hypoxia and hypercapnia Priority: Primary Status: Acute (2) Acute exacerbation of chronic obstructive airways disease Priority: Primary Status: Acute (3) Housing unsatisfactory Priority: Primary Status: Acute (4) Severe protein-calorie malnutrition Priority: Primary Status: Acute (5) DVT prophylaxis Priority: Primary Status: Acute - Respiratory Orders Smoking Cessation: Smoking cessation has been advised. For more information, call the [place] Tobacco Quit Line at 0-076-TLEA-NOW. - Activity Activity Orders: Ambulate - Services Needed Following services are medically necessary services: Nursing, Home Health Aide, Physical Therapy - Transfer Medications Prescriptions: LORazepam [Ativan] 0.5 mg PO Q4HR PRN 5 Days #20 tablet PRN Reason: Anxiety Prescription Printed predniSONE [PredniSONE] 40 mg PO DAILY #14 tablet Prescription Printed Budesonide/Formoterol 160/4.5 [Symbicort 160/4.5] 2 puff IH BIDR #60 inh Prescription Printed Azithromycin [Zithromax] 500 mg PO DAILY #10 tablet Prescription Printed Home Medications: Albuterol Sulfate [Ventolin Hfa] 2 puff IH Q4H PRN 05/09/19 [History] Azithromycin [Zithromax] 500 mg PO DAILY #10 tablet 05/13/19 [Rx] Budesonide/Formoterol 160/4.5 [Symbicort 160/4.5] 2 puff IH BIDR #60 inh 05/13/19 [Rx] LORazepam [Ativan] 0.5 mg PO Q4HR PRN 5 Days #20 tablet 05/13/19 [Rx] predniSONE [PredniSONE] 40 mg PO DAILY #14 tablet 05/13/19 [Rx] Allergies/Adverse Reactions: Allergy/AdvReac Type Severity Reaction Status Date / Time No Known Allergies Allergy Verified 06/09/18 02:32 Certification: Further, I certify that my clinical findings support that this patient is homebound (i.e. absences from home require considerable and taxing effort and are for medical reasons or rastafari services or infrequently or short duration when for other reasons) because: Homebound Reason: Patient requires assistance of a person or device to safely leave home Attestation: My signature below is to certify that this patient is under my care and that I, or nurse practitioner, or a physician's assistant director of admissions working with me, has a [id number] encounter with this patient.
[2019-05-13] MEDS: Budesonide/Formoterol 160/4.5 1 PUFF INH IH SCH (07:35)
[2019-05-13] MEDS: Azithromycin 250 MG TABLET PO SCH (09:59)
[2019-05-13] MEDS: *HR* LORazepam 0.5 MG TABLET PO PRN (10:00)
== END 2019-05-13 11:22 | disposition home or self-care (01) | DRG 190 ==
LOC: 2ANU 16:41 → EMEROOARM 16:41 → 2ANU 22:07
PROVIDERS: ADMIT Internal Medicine; ATTEND Internal Medicine

== ENCOUNTER 2019-07-31 15:24 | Inpatient (IN) ==
[2019-07-31 16:36] LABS: Bilirubin,Urine Negative (Negative); Blood,Urine Negative (Negative); Clarity,Urine Cloudy (Clear); Color,Urine Yellow (Yellow); Glucose,Urine (UA) Normal (Normal); Ketones,Urine Trace mg/dL (Negative); Leukocyte Esterase,Urine Small (Negative); Nitrite,Urine Negative (Negative); Protein,Urine Trace mg/dL (Neg-Trace); Specific Gravity,Urine 1.028 (1.010-1.025); Urobilinogen,Urine Normal (Normal)
[2019-07-31 16:37] LABS: Amphetamine Screen,Urine Negative ng/mL (Cutoff=1000); Barbiturate Screen,Urine Negative ng/mL (Cutoff=200); Benzodiazepines Screen,Urine Negative ng/mL (Cutoff=200); Cannabinoid Screen,Urine Negative ng/mL (Cutoff = 50); Cocaine Screen,Urine Negative ng/mL (Cutoff= 300); Opiate Screen,Urine Negative ng/mL (Cutoff=300); Phencyclidine Screen,Urine Negative ng/mL (Cutoff=25)
[2019-07-31 16:39] LABS: Squamous Epithelial Cell,Urine Many per lpf (None-Few)
[2019-07-31 16:53] LABS: Basophils % 0.2 %; Eosinophils # 0.4 K/mcL (0.0-0.6); Eosinophils % 4.3 %; Hematocrit 37.9 % (35.3-44.9); Hemoglobin 12.4 g/dL (11.5-15.4); Immature Granulocytes % 0.4 % (0-4); Lymphocytes # 1.5 K/mcL (0.6-4.6); Lymphocytes % 18.2 %; Mean Corpuscular HGB Conc 32.7 g/dL (31.6-35.5); Mean Corpuscular Hemoglobin 31.6 pg (28.0-33.3); Mean Corpuscular Volume 96.4 fL (83.0-100.0); Mean Platelet Volume 11.3 fL (9.4-12.4); Monocytes % 12.2 %; Neutrophils # 5.3 K/mcL (1.6-8.9); Platelet Count 258 K/mcL (140-400); Red Blood Count 3.93 M/mcL (3.82-4.97); Red Cell Distribution Width 13.5 % (11.5-14.5); Segmented Neutrophils % 64.7 %; White Blood Count 8.2 K/mcL (4.3-11.1)
[2019-07-31 16:54] LABS: Hyaline Casts,Urine Few per lpf (None-Few)
[2019-07-31 16:55] LABS: Bacteria,Urine Few per hpf (None-Few); RBC,Urine 0-3 per hpf (0-3)
[2019-07-31 17:17] LABS: Acetaminophen < 10 mcg/mL (10-20); Alanine Aminotransferase 9 Units/L (7-52); Albumin 3.9 g/dL (3.5-5.7); Albumin/Globulin Ratio 1.5 (1.1-2.2); Alkaline Phosphatase 91 Units/L (34-104); Aspartate Amino Transferase 16 Units/L (13-39); BUN/Creatinine Ratio 32 (6-26); Bilirubin,Total 0.5 mg/dL (0.3-1.0); Blood Urea Nitrogen 23 mg/dL (8-23); Calcium 8.9 mg/dL (8.6-10.3); Carbon Dioxide 23 mEq/L (23-29); Chloride 107 mEq/L (98-107); Ethanol < 10 mg/dL (Less than 10); Globulin 2.6 g/dL (2.4-3.5); Glucose 66 mg/dL (70-105); Osmolality,Calculated 296 (280-300); Potassium 3.8 mEq/L (3.5-5.1); Salicylate < 2.5 mg/dL (15.0-30.0); Sodium 142 mEq/L (136-145); Thyroid Stimulating Hormone 0.619 mcIU/mL (0.340-5.600); Total Protein 6.5 g/dL (6.4-8.9); eGFR For African Americans > 60 (> 60); eGFR For Non-African Americans > 60 (> 60)
[2019-07-31] MEDS: *HR* LORazepam 0.5 MG TABLET PO ONE ×2 (17:52→18:03)
[2019-07-31] MEDS ORDERED: Naloxone 0.4 MG/ML INJ IVP PRN (20:50)
[2019-08-01] MEDS ORDERED: Ziprasidone 10 MG in Water for inj. (sterile) 0.5 ML IM ONE (03:15)
[2019-08-01] MEDS: Ipratropium/Albuterol Neb 3 ML IH SCH ×7 (04:18→23:51)
[2019-08-01] MEDS: *HR* Heparin 5,000 UNIT/ML VIAL SQ SCH ×3 (10:17→21:40)
[2019-08-02] MEDS: Ipratropium/Albuterol Neb 3 ML IH SCH ×5 (03:31→19:49)
[2019-08-02] MEDS: *HR* Heparin 5,000 UNIT/ML VIAL SQ SCH ×3 (04:56→20:52)
[2019-08-03] MEDS: Ipratropium/Albuterol Neb 3 ML IH SCH ×6 (00:17→19:52)
[2019-08-03] MEDS: *HR* Heparin 5,000 UNIT/ML VIAL SQ SCH ×3 (05:52→20:22)
[2019-08-03 07:49] LABS: Hematocrit 34.6 % (35.3-44.9); Hemoglobin 11.5 g/dL (11.5-15.4); Mean Corpuscular HGB Conc 33.2 g/dL (31.6-35.5); Mean Corpuscular Hemoglobin 31.1 pg (28.0-33.3); Platelet Count 282 K/mcL (140-400); Red Cell Distribution Width 13.2 % (11.5-14.5); White Blood Count 6.9 K/mcL (4.3-11.1)
[2019-08-03 07:50] LABS: Mean Corpuscular Volume 93.5 fL (83.0-100.0)
[2019-08-04] MEDS: *HR* Heparin 5,000 UNIT/ML VIAL SQ SCH ×3 (05:40→19:27)
[2019-08-04] MEDS: Ipratropium/Albuterol Neb 3 ML IH PRN ×2 (12:02→16:41)
[2019-08-05] MEDS: *HR* Heparin 5,000 UNIT/ML VIAL SQ SCH ×3 (01:49→19:17)
[2019-08-05 10:59] LABS: Hematocrit 38.9 % (35.3-44.9); Hemoglobin 12.4 g/dL (11.5-15.4); Mean Corpuscular HGB Conc 31.9 g/dL (31.6-35.5); Mean Corpuscular Hemoglobin 31.2 pg (28.0-33.3); Mean Corpuscular Volume 97.7 fL (83.0-100.0); Platelet Count 279 K/mcL (140-400); Red Blood Count 3.98 M/mcL (3.82-4.97); Red Cell Distribution Width 13.2 % (11.5-14.5)
[2019-08-05] MEDS: Ipratropium/Albuterol Neb 3 ML IH PRN (11:35)
[2019-08-06] MEDS: *HR* Heparin 5,000 UNIT/ML VIAL SQ SCH ×3 (02:48→20:38)
[2019-08-06] MEDS: Ipratropium/Albuterol Neb 3 ML IH PRN (09:46)
[2019-08-07] MEDS: Ipratropium/Albuterol Neb 3 ML IH PRN ×2 (03:33→20:36)
[2019-08-07] MEDS: *HR* Heparin 5,000 UNIT/ML VIAL SQ SCH ×3 (05:14→19:57)
[2019-08-07 06:01] LABS: Hematocrit 34.9 % (35.3-44.9); Hemoglobin 11.5 g/dL (11.5-15.4); Mean Corpuscular Hemoglobin 31.3 pg (28.0-33.3); Mean Corpuscular Volume 95.1 fL (83.0-100.0); Mean Platelet Volume 10.9 fL (9.4-12.4); Platelet Count 289 K/mcL (140-400); Red Blood Count 3.67 M/mcL (3.82-4.97); Red Cell Distribution Width 13.2 % (11.5-14.5); White Blood Count 6.7 K/mcL (4.3-11.1)
[2019-08-08] MEDS: *HR* Heparin 5,000 UNIT/ML VIAL SQ SCH ×4 (05:48→22:24)
[2019-08-08] MEDS: Ipratropium/Albuterol Neb 3 ML IH PRN ×3 (08:07→20:07)
[2019-08-08] MEDS ORDERED: Haloperidol Lactate 5 MG/ML VIAL IM ONE (15:14)
[2019-08-08] MEDS ORDERED: Bisacodyl 10 MG RECTAL SUPPOSITORY RC PRN (18:40)
[2019-08-08] MEDS ORDERED: Hyoscyamine SL 0.125 MG TAB.SUBL SL PRN (18:40)
[2019-08-08] MEDS: *HR* LORazepam 0.5 MG TABLET PO PRN (18:55)
[2019-08-09] MEDS: *HR* LORazepam 0.5 MG TABLET PO PRN (02:29)
[2019-08-09] MEDS: Ipratropium/Albuterol Neb 3 ML IH PRN ×2 (03:01→15:57)
[2019-08-09] MEDS: *HR* Heparin 5,000 UNIT/ML VIAL SQ SCH ×3 (05:40→20:23)
[2019-08-10] MEDS: *HR* LORazepam 0.5 MG TABLET PO PRN ×3 (02:26→19:37)
[2019-08-10] MEDS: *HR* Heparin 5,000 UNIT/ML VIAL SQ SCH ×3 (04:37→19:47)
[2019-08-11] MEDS: *HR* Heparin 5,000 UNIT/ML VIAL SQ SCH ×3 (04:35→20:23)
[2019-08-11] MEDS: *HR* LORazepam 0.5 MG TABLET PO PRN ×2 (10:12→16:50)
[2019-08-11] MEDS: Ipratropium/Albuterol Neb 3 ML IH PRN ×3 (10:13→20:32)
[2019-08-12] MEDS: *HR* LORazepam 0.5 MG TABLET PO PRN ×2 (01:38→20:08)
[2019-08-12] MEDS: *HR* Heparin 5,000 UNIT/ML VIAL SQ SCH ×3 (04:58→21:01)
[2019-08-12] MEDS: Ipratropium/Albuterol Neb 3 ML IH PRN (20:16)
[2019-08-13] MEDS: *HR* Heparin 5,000 UNIT/ML VIAL SQ SCH ×3 (05:59→21:59)
[2019-08-13] MEDS: Ipratropium/Albuterol Neb 3 ML IH PRN (07:44)
[2019-08-13] MEDS: *HR* LORazepam 0.5 MG TABLET PO PRN ×2 (07:50→13:17)
[2019-08-14] MEDS: *HR* LORazepam 0.5 MG TABLET PO PRN ×3 (00:46→12:34)
[2019-08-14] MEDS: *HR* Heparin 5,000 UNIT/ML VIAL SQ SCH ×3 (05:04→22:03)
[2019-08-15] MEDS: *HR* LORazepam 0.5 MG TABLET PO PRN ×2 (02:20→09:32)
[2019-08-15] MEDS: Ipratropium/Albuterol Neb 3 ML IH PRN (09:48)
[2019-08-15] MEDS: *HR* Heparin 5,000 UNIT/ML VIAL SQ SCH ×3 (14:16→21:36)
[2019-08-16] MEDS: *HR* LORazepam 0.5 MG TABLET PO PRN (01:04)
[2019-08-16 11:46] VITALS: BP 128/84
[2019-08-16] MEDS: *HR* Heparin 5,000 UNIT/ML VIAL SQ SCH (14:00)
== END 2019-08-16 18:35 | DRG 884 ==
LOC: 3BNU 15:24 → EMEROOARM 15:24 → 3BNU 21:05
PROVIDERS: ADMIT Internal Medicine; ATTEND Internal Medicine